=== PATIENT | male | born 1980 | race Caucasian/White ===

== ENCOUNTER 2024-05-30 12:17 | Emergency (ER) | payer MEDICAID ==
[~2024-05-30] VITALS: Ht 170.2 cm; Wt 72.6 kg
[2024-05-30 16:15] VITALS: BP 178/99; O2SAT 98
== END 2024-05-30 16:15 | disposition home or self-care (01) ==
LOC: ER 12:17
DX: S06.0XAA Concussion with loss of consciousness status unknown, initial encounter (principal); S16.1XXA Strain of muscle, fascia and tendon at neck level, initial encounter; F17.200 Nicotine dependence, unspecified, uncomplicated; W22.8XXA Striking against or struck by other objects, initial encounter; Y93.89 Activity, other specified; Y92.89 Other specified places as the place of occurrence of the external cause; Y99.8 Other external cause status
CPT/HCPCS: 70450; 72125; A4606; A4663